=== PATIENT | male | born 1980 | race Hispanic/Latino ===

== ENCOUNTER 2016-10-28 21:40 | Inpatient (IN) ==
[2016-10-28 22:11] LABS: MANUAL DIFF NEEDED? NO
[2016-10-28 22:21] LABS: BASO% 0.2 % (0.0-0.8); EOS# 0.08 X1000 (0.0-0.7); EOS% 0.5 % (0.0-10.0); IMM GRAN# 0.08 X1000 (0.0-0.04); IMM GRAN% 0.5 % (0.0-0.5); LYMPH# 2.46 X1000 (1.2-3.4); LYMPH% 14.8 % (20.5-51.1); MCH 27.7 PG (27-31); MCV 79.2 FL (81-99); MONO# 1.13 X1000 (0.11-0.59); MONO% 6.8 % (1.7-9.3); MPV 9.8 FL (7.4-10.4); NEUT% 77.2 % (42.2-75.2); PLT 305 X1000 (130-400); RBC 5.05 XMIL (4.7-6.1)
[2016-10-28 22:40] LABS: BILIRUBIN URINE NEGATIVE (NEGATIVE); BLOOD URINE NEGATIVE (NEGATIVE); CLARITY CLEAR (CLEAR); COLOR YELLOW; GLUCOSE URINE NEGATIVE (NEGATIVE); LEUKOCYTES URINE TRACE (NEGATIVE); NITRITE URINE NEGATIVE (NEGATIVE); PH URINE 6.5; PROTEIN URINE TRACE mg/dL (NEGATIVE); SP GRAVITY URINE 1.015; UROBILINOGEN URINE NORMAL
[2016-10-28 22:41] LABS: URINE CULTURE PL NEEDED? YES; URINE EPITHELIAL CELLS <10 /HPF (<10); URINE RBC <10 /HPF (<10); URINE SOURCE CLEAN CATCH; URINE WBC <10 /HPF (<10)
[2016-10-28 22:58] LABS: AGAP 16; ALBUMIN 4.7 g/dL (3.5-5.0); ALKALINE PHOSPHATASE 102 U/L (32-122); BUN 17 mg/dL (8-22); CALCIUM 9.2 mg/dL (8.8-10.2); CHLORIDE 91 mmol/L (98-107); COSMO 266; GOT 24 U/L (10-34); GPT 35 U/L (10-44); POTASSIUM 3.8 mmol/L (3.5-5.1); SODIUM 131 mmol/L (136-145); TCO2 24 mmol/L (25-35); TOTAL PROTEIN 8.3 g/dL (6.3-8.3)
[2016-10-28] MEDS ORDERED: LR 1,000 ML IV PRN (23:05)
[2016-10-28] MEDS ORDERED: ZOFRAN IV ONE (23:05)
[2016-10-28] MEDS ORDERED: MORPHINE IV ONE (23:05)
[2016-10-29] MEDS ORDERED: ZOSYN 3.375 GM/NS 50 ML IV ONE (01:49)
--- NOTE | 2016-10-29 01:51 | PROVIDER DOCUMENTATION ---
This chart was entered by Magaly Moy Scribe, acting as scribe for Blake Hammer MD. HPI-Abdominal Pain/GI Problem - General Chief Complaint: Abdominal Pain Stated Complaint: ABD PAIN Time Seen by Provider: 10/28/16 21:42 Source: patient Allergies/Adverse Reactions: Patient Allergies Allergy/AdvReac Type Severity Reaction Status Date / Time No Known Allergies Allergy Verified 10/28/16 22:00 Home Medications: Home Medication List Medication Instructions Recorded Confirmed Last Taken Type Lisinopril/Hydrochlorothiazide 10 mg PO DAILY 10/28/16 10/28/16 10/28/16 History [Lisinopril-Hctz 10-12.5 mg Tab] - History of Present Illness-ABD Nature of Presenting Problems: Pt is a 36 yom who came to the ED with a cc of RLQ pain. Pt reports he woke up this morning with RLQ pain that is constant. PT reports he ate Kinyar[place]anda food last night and thinks that is the reason he has abdominal pain and N/V. Abdominal Pain Onset Location: reports: RLQ Pain Radiation: reports: no radiation Quality of Pain: reports: sharp Severity in ED: reports: mild Onset/Duration: reports: this morning Timing: reports: constant Modifying Factors: improves with: massage, palpation, vomiting Associated Symptoms: reports: vomiting Last BM: unsure Dark Stools Present?: reports: none noticed Rectal Bleeding: reports: none Rectal Pain: reports: none Bruising or Bleeding Gums?: No Similar Symptoms Previously?: No Recently seen or treated by another doctor?: No Review of Systems - Adult - REVIEW OF SYSTEMS - ADULT Constitutional: denies: chills, fever Eyes: reports: no symptoms reported Ears, Nose, Mouth & Throat: reports: no symptoms reported Cardiovascular: reports: no symptoms reported Respiratory: reports: no symptoms reported Gastrointestinal: reports: abdominal pain (RLQ), nausea, vomiting. denies: diarrhea, difficulty swallowing Genitourinary: denies: frequent UTI's, hesitency Musculoskeletal: reports: no symptoms reported Integumentary: reports: no symptoms reported Neurological: reports: no symptoms reported Psychiatric: reports: no symptoms reported Endocrine: reports: no symptoms reported Hematologic/Lymphatic: reports: no symptoms reported Allergic/Immunologic: reports: no symptoms reported All Other Systems: Reviewed and Negative Past History - Adult - PAST MEDICAL HISTORY-ADULT Review of Records: reports: Nursing Assessment Review Major Childhood Illnesses: reports: denies history Cardiovascular: reports: HTN Respiratory: reports: denies history Gastrointestinal: reports: denies history Obstetrical/Gynecological: reports: denies history Genitourinary: reports: denies history Musculoskeletal: reports: denies history Neurological: reports: denies history Endocrine/Immune: reports: denies history Other Conditions: reports: denies history - IMMUNIZATION STATUS Childhood Immunizations: See Nurse Assessment Flu Vaccine: See Nurse Assessment - FAMILY HISTORY Family History: reviewed, not pertinent Physical Exam-General - PHYSICAL EXAM-ADULT Initial Vital Signs Reviewed: Yes - CONSTITUTIONAL General Appearance: appears well, alert, mild distress - EYES Eyes: PERRL/EOMI, pink conjunctivae - HEAD, EARS, NOSE, MOUTH & THROAT HENMT: normocephalic/atraumatic, moist mucous membranes, normal ENT inspection - NECK Neck: non-tender, full range of motion - RESPIRATORY Respiratory: chest non-tender, lungs clear - CARDIOVASCULAR Cardiovascular: normal peripheral pulses, regular rate, rhythm - GASTROINTESTINAL (ABDOMEN) Abdominal Exam: normal bowel sounds, tenderness, Ross's sign - MUSCULOSKELETAL Back Exam: normal inspection, no CVA tenderness Extremity: normal range of motion, non-tender - SKIN Integumentary: normal color, normal turgor - NEUROLOGIC Neurologic: grossly normal - PSYCHIATRIC Psych/Mental Status: normal mood/affect, normal thought content, normal thought process, oriented x 3 Progress - PLAN OF CARE/RESULTS Progress/Plan/Lab Results: Vital Signs - 8 hr 10/28/16 21:46 Temperature 100.1 F H Pulse Rate 96 H Respiratory Rate 18 Blood Pressure 143/84 O2 Sat by Pulse Oximetry 99 Orders Category Date Time Status CBC WITH DIFF [HEME] Stat Lab 10/28/16 21:51 Ordered COMPREHENSIVE METABOLIC PANEL [CHEM] Stat Lab 10/28/16 21:[address] W/POSS RFLX CULT [URINALYSIS] Stat Lab 10/28/16 22:00 Ordered Result Diagrams: 10/28/16 22:02 10/28/16 22:02 - XRAY 1 XRAY Study: Abdomen (no free air. No abstruction) - CT/MRI 1 CT Study: Abdomen (ACUTE APPENDICITIS) Departure - Departure Time of Disposition Decision: 01:50 DIAGNOSIS: Appendicitis, acute Qualifiers: Acute appendicitis type: with localized peritonitis Qualified Code(s): K35.3 - Acute appendicitis with localized peritonitis Disposition: [facility] 02 Certified Medical Emergency: Emergent Condition: Fair Work Excuses: Return to School/Parent Work - Critical Care Note This patient required my direct & personal management of CC.: No This chart was documented by the indicated scribe, (Magaly Moy Scribe) and accurately reflects the services I performed and decisions made by me, Blake Hammer MD, as attested by the provider's signature.
[2016-10-29] MEDS ORDERED: MORPHINE IV PRN (02:07)
[2016-10-29] MEDS ORDERED: ZOFRAN IV PRN (02:07)
[2016-10-29] MEDS ORDERED: NS 1,000 ML IV ONE (02:07)
[2016-10-29] MEDS ORDERED: ZOSYN 3.375 GM/NS 3.375 GM/50 ML IVPB IV SCH ×2 (02:15→04:30)
[2016-10-29] MEDS ORDERED: ZOSYN 3.375 GM/NS 3.375 GM/50 ML IVPB ONE ×2 (02:16→02:20)
--- NOTE | 2016-10-29 05:27 | HISTORY AND PHYSICAL ---
ADMITTING DIAGNOSIS: Appendicitis. HISTORY OF PRESENT ILLNESS: A 36-year-old, male who came to the emergency department complaining of right lower quadrant pain. He reports that it woke him up on the morning of the and has been constant. He described it as sharp and in the right lower quadrant. The patient does speak French and very little Turkmen so most of this was done through translating with a family member in the room. He reports that he has never had pain like this before and it only started this morning. He was seen in emergency department. Had a CT scan that showed appendicitis. I admitted the patient. He says he is still hurting but it is not as bad. PAST MEDICAL HISTORY: Includes hypertension. PAST SURGICAL HISTORY: None. SOCIAL HISTORY: Denies alcohol, tobacco, or illicit drugs. FAMILY HISTORY: Reviewed with patient. No family history of hypertension or GI malignancies. HOME MEDICATIONS: Include lisinopril. ALLERGIES: None. REVIEW OF SYSTEMS: A full 10 point review of systems was obtained and negative except specified in the HPI. PHYSICAL EXAMINATION: VITAL SIGNS: Patient is currently afebrile. His vital signs have been stable. GENERAL: No acute distress but appears uncomfortable. male, looks stated age. HEENT: Normocephalic, atraumatic. Pupils equal, round, react to light. Mucous membranes moist. Oropharynx benign. NECK: Supple. Trachea midline. CARDIOVASCULAR: Regular rate and rhythm. LUNGS: Grossly clear. ABDOMEN: Soft, nondistended. Tender to palpation in the right lower quadrant with localized guarding, consistent with appendicitis. EXTREMITIES: Moves all extremities. NEUROLOGIC: Grossly intact. SKIN: No signs of jaundice. VASCULAR: All extremities perfused. LABORATORY: White blood cell count 16, hematocrit 40, platelet count 305,000. Remainder of labs reviewed. CT scan independently reviewed and radiology report reviewed. ASSESSMENT/PLAN: A 36-year-old, male with appendicitis. Appendicitis. At this time, it does not look perforated. Started him on antibiotics and kept him nothing per oral. We will plan on surgical intervention later this morning. This was all discussed with the family. All questions were answered. cc: Abelardo Saucedo MD
[2016-10-29] MEDS ORDERED: LR 1,000 ML ONE ×2 (09:02→11:05)
[2016-10-29] MEDS ORDERED: MARCAINE 0.25% PF/EPI 1:200,000 ONE (09:02)
[2016-10-29] MEDS ORDERED: XYLOCAINE 1% ONE (09:02)
[2016-10-29] MEDS ORDERED: CLAVE SECONDARY SET 11953 ONE (10:23)
--- NOTE | 2016-10-29 10:49 | Diag Imaging Result Document ---
PROCEDURE NAME: ABDOMEN FLAT/UPRIGHT - 10/28/2016 X-RAY ABDOMEN 2 VIEWS, 10/28/2016: COMPARISON: None. FINDINGS: There is moderate to severe constipation. No bowel obstruction or free air. No abnormal calcifications. IMPRESSION: Constipation.
[2016-10-29] MEDS ORDERED: FENTANYL ONE (10:53)
[2016-10-29] MEDS ORDERED: DIPRIVAN 1% ONE (10:53)
--- NOTE | 2016-10-29 11:03 | Diag Imaging Result Document ---
PROCEDURE NAME: ABDOMEN/PELVIS W/CONTRAST - 10/28/2016 CT OF THE ABDOMEN WITH INTRAVENOUS AND ORAL CONTRAST: There are no previous studies. FINDINGS: The visualized portion of the chest is unremarkable. The spleen is not enlarged. The adrenal glands are not enlarged. The pancreas is unremarkable. The gallbladder is clear. The stomach is unremarkable in appearance. There is a markedly distended and inflamed appearing appendix, the tip of which is adjacent to the inferior portion of the right hepatic lobe. This measures in excess of 13 mm in diameter. It is largely retrocecal in location. There is no apparent abscess at this time. The small bowel is unremarkable in appearance. There is no evidence of significant adenopathy or abdominal aortic aneurysm. CT OF THE PELVIS WITH INTRAVENOUS AND ORAL CONTRAST: FINDINGS: The urinary bladder is unremarkable. There is a fat-containing right inguinal hernia. There is no evidence of free fluid. The regional skeleton appears to be intact. IMPRESSION: Acute appendicitis.
[2016-10-29] MEDS ORDERED: ZOFRAN ONE (11:04)
[2016-10-29] MEDS ORDERED: XYLOCAINE-MPF 2% ONE (11:04)
[2016-10-29] MEDS ORDERED: NEOSTIGMINE ONE (11:04)
[2016-10-29] MEDS ORDERED: ROBINUL ONE (11:04)
[2016-10-29] MEDS ORDERED: NORCURON ONE (11:04)
[2016-10-29] MEDS ORDERED: DECADRON ONE (11:05)
[2016-10-29] MEDS ORDERED: QUELICIN (DOSE) ONE (11:05)
[2016-10-29] MEDS: MORPHINE ONE ×3 (11:13→11:28)
[2016-10-29] MEDS ORDERED: PHENERGAN ONE (11:30)
[2016-10-29] MEDS ORDERED: NORCO-10 PO PRN (12:08)
[2016-10-29 13:51] VITALS: BP 125/77
--- NOTE | 2016-10-29 13:57 | OPERATIVE NOTE ---
PROCEDURE DATE: 10/29/2016 PREOPERATIVE DIAGNOSIS: Acute appendicitis. POSTOPERATIVE DIAGNOSIS: Acute appendicitis. PROCEDURES: Laparoscopic appendectomy. SURGEON: Abelardo Saucedo MD [employer]: None. ANESTHESIA: General endotracheal. INTRAOPERATIVE FINDINGS: As above. ESTIMATED BLOOD LOSS: 10 mL. SPECIMENS REMOVED: Appendix. BRIEF HISTORY: Patient is a 36-year-old male, came in with symptoms classic for appendicitis. The risks, benefits, alternatives were discussed with him via the sample hand phone about laparoscopic appendectomy, all questions answered. DESCRIPTION OF PROCEDURE: After informed consent was obtained, patient was brought to the operating theater and transferred to the operating table and placed in supine position. General endotracheal anesthesia was then performed without complication. A formal time-out was then performed confirming patient, date, procedure. All were in agreement. At that time, attention was given to the abdomen, infraumbilical incision was made through which using Optiview technique, we were able insert a 12 mm trocar without incident, connected insufflation, pneumoperitoneum was achieved. Under direct visualization, we placed 2 more trocars, one 5 mm right upper quadrant, one 5 mm left lower quadrant. Using these, we were able to identify the appendix. It was inflamed consistent with appendicitis. We were able to dissect out the appendix. Given its twisted nature, we used LigaSure on the mesoappendix, which we were able to come across easily. We then were able to identify what appeared to be the base of the appendix. The inflammation did make this somewhat difficult, but we viewed from multiple angles and viewed that we were less than 5 mm from the appendiceal base. We fired a ISABEL stapler across this, reexamined the staple line, there was no active bleeding. No drainage of succus. No injury to the small bowel or the cecum. Again, it looked like the appendiceal stump was less than 5 mm viewed on this procedure during the dense inflammatory process occurred. We irrigated out the abdomen copiously until the suction fluid was clear. We brought the appendix out through a bag through the infraumbilical incision. We closed the infraumbilical incision with 0 Vicryl on a Torito-Yannick device. Removed all trocars, disconnected insufflation. Pneumoperitoneum was released. We then closed all skin incisions with 4-0 Monocryl. The patient tolerated the procedure well, was transferred to recovery room in stable condition. Postoperatively, we will discharge him home. cc: Abelardo Saucedo MD
[2016-10-30] MEDS ORDERED: PRINZIDE 10/12.5MG PO SCH (09:00)
== END 2016-10-29 15:36 | disposition home or self-care (01) ==
LOC: P.ED 21:40 → 4N 10-29 03:41
PROVIDERS: ADMIT Surgery; ATTEND Surgery